=== PATIENT | male | born 1960 | race Two or more races ===

== ENCOUNTER 2023-11-14 16:15 | Outpatient (CLI) | payer BC, SELFPAY ==
--- NOTE | ~2023-11-14 | XR_ITS ---
Thoracic spine: Clinical Indication: Back pain AP and lateral views were performed. No fracture is seen. There is normal alignment of the vertebrae. The intervertebral disc spaces appe ar normal. Paravertebral soft tissues appear normal. Impression: No significant abnormalities noted. Reviewed, dictated and finalized at [facility]. Impression: No significant abnormalities noted.
--- NOTE | ~2023-11-14 | XR_ITS ---
Cervical Spine: AP, lateral, open-mouth views Clinical History: Pain Findings: There is straightening of the normal cervical lordosis. There is minimal grade 1 retrolisth esis of C4 over C5. There is moderate to advanced degenerative disc narrowing at C4-C5, C5-C6, and C6 -C7. There is moderate facet arthropathy throughout the cervical spine. Pre-vertebral soft tissues ar e unremarkable. Impression: Moderate to advanced degenerative spondylosis. Grade 1 retrolisthesis of C4 over C5. Reviewed, dictated and finalized at location [facility]. Impression: Moderate to advanced degenerative spondylosis. Grade 1 retrolisthesis of C4 over C5.
== END 2023-11-14 16:16 ==
PROVIDERS: PCP Emergency Medicine; Visit Provider Emergency Medicine
DX: M47.892 Other spondylosis, cervical region (principal)
CPT/HCPCS: 72040; 72070